=== PATIENT | male | born 1960 | race Caucasian/White ===

== ENCOUNTER 2018-03-04 00:26 | Emergency (ER) | payer OTHER ==
[2018-03-04 00:36] VITALS: BP 128/77; PULSE 78; TEMP 98.2; BMI 32.8
--- NOTE | 2018-03-04 00:52 | PDOC ---
History of Present Illness - General Chief Complaint: Diarrhea Stated Complaint: DIARRHEA Time Seen by Provider: 03/04/18 00:41 History Source: Patient Exam Limitations: No Limitations - History of Present Illness Travel History: No Initial Comments: 03/04/18 00:46 HISTORY OF PRESENT ILLNESS: This is a 57-year-old male with past medical history of hypertension and NIDDM, hyperlipidemia, CABG x3v in 2005 who presents to the emergency Department with 2 days of diarrhea. Patient states no change in dietary habits. Patient states stools and dark brown to black. Patient reports taking Pepto-Bismol to help with the diarrhea. Patient denies fevers, chills, chest pain, shortness of breath, abdominal pain, nausea, vomiting, dysuria, rectal bleeding. No recent travel or sick contacts. PAST MEDICAL HISTORY: see hpi SURGICAL HISTORY: see hpi ALLERGIES: No known drug allergies REVIEW OF SYSTEMS General/Constitutional: Denies fever or chills. Denies weakness, weight change. HEENT: Denies change in vision. Denies ear pain or discharge. Denies sore throat. Cardiovascular: Denies chest pain or shortness of breath. Respiratory: Denies cough, wheezing, or hemoptysis. Gastrointestinal: Denies nausea, vomiting or constipation. Denies rectal bleeding. + dark brown/black diarrhea Genitourinary: Denies dysuria, frequency, or change in urination. Musculoskeletal: Denies joint or muscle swelling or pain. Denies neck or back pain. Skin and breasts: Denies rash or easy bruising. Neurologic: Denies headache, vertigo, loss of consciousness, or loss of sensation. Psychiatric: Denies depression or anxiety. Endocrine: Denies increased thirst. Denies abnormal weight change. Hematologic/Lymphatic: Denies anemia, easy bleeding, or history of blood clots. Allergic/Immunologic: Denies hives or skin allergy. Denies latex allergy. PHYSICAL EXAM General Appearance: Well-appearing, appropriately dressed. No apparent distress , no intoxication. HEENT: EOMI, PERRLA, normal ENT inspection, normal voice, TMs normal, pharynx normal. No conjunctival pallor. No photophobia, scleral icterus. Neck: Supple. Trachea midline. No tenderness, rigidity, carotid bruit, stridor , lymphadenopathy, or thyromegaly. Respiratory/Chest: Lungs CTAB. No shortness of breath, chest tenderness, respiratory distress, accessory muscle use. No crackles, rales, rhonchi, stridor , wheezing, dullness Cardiovascular: RRR. S1, S2. No JVD, murmur, bradycardia, tachycardia. Vascular Pulses: Dorsalis-Pedis (R): 2+, Dorsalis-Pedis (L): 2+ Gastrointestinal/Abdominal: Normal bowel sounds. Abdomen soft, non-distended. No tenderness or rebound tenderness. No organomegaly, pulsatile mass, guarding, hernia, hepatomegaly, splenomegaly. Rectal: Prostate WNL. Palpable stool in vault. Dark brown stool present. Lymphatic: No adenopathy, tenderness. Musculoskeletal/Extremities: Normal inspection. FROM of all extremities, normal capillary refill. Pelvis Stable. No CVA tenderness. No tenderness to extremities, pedal edema, swelling, erythema or deformity. Integumentary: Appropriate color, dry, warm. No cyanosis, erythema, jaundice or rash Neurologic: floor surfacer II-XII intact. Fully oriented, alert. Appropriate mood/affect. Motor strength 5/5. No appreciable EOM palsy, facial droop or sensory deficit. Past History - Past Medical History Allergies/Adverse Reactions: Allergies Allergy/AdvReac Type Severity Reaction Status Date / Time No Known Allergies Allergy Verified 03/04/18 00:35 Cardiac Disorders: Yes (triple bypass) COPD: No Diabetes: Yes HTN: Yes Hypercholesterolemia: Yes - Surgical History Cardiac Surgery: Yes (triple bypass) - Suicide/Smoking/Psychosocial Hx Smoking History: Never smoked *Physical Exam - Vital Signs Last Vital Signs Temp Pulse Resp BP Pulse Ox 98.2 F 78 18 128/77 97 03/04/18 00:32 03/04/18 00:32 03/04/18 00:32 03/04/18 00:32 03/04/18 00:32 ED Treatment Course - LABORATORY CBC & Chemistry Diagram: 03/04/18 01:21 03/04/18 01:21 Medical Decision Making - Medical Decision Making 03/04/18 00:59 A/P: 57-year-old male with history of hypertension, NIDDM, hyperlipidemia, CABG 3v with 2 days of diarrhea Normoactive bowel sounds Abdomen soft nontender nondistended Palpable formed stool in the vault Dark brown stool on rectal exam DDx: Most likely acute diarrhea. Less likely infectious this patient has not had any abdominal pain, fevers, recent travel or antibiotic usage. Less likely obstruction or mass as normal painless abdominal exam. Given patient has had more than 6 loose bowel movements in the past 24 hours I will collect a basic set of laboratory testing to rule out electrolyte abnormalities and rectal bleeding. Normal saline 1 L IV bolus now. Likely discharge. 03/04/18 02:52 Laboratory testing notable for slightly elevated BUN-22. WBC 10,300. I will discharge the patient home as remainder of electrolytes are within normal limits and are negative occult blood. I will instruct the patient to take Imodium [id number] and follow printer technician's instructions for appropriate dosage. I discussed the physical exam findings, ancillary test results and final diagnoses with the patient. I answered all of the patient's questions. The patient was satisfied with the care received and felt comfortable with the discharge plan and treatment plan. The patient will call their primary care physician within 24 hours to arrange follow-up and will return to the Emergency Department with any new, persistent or worsening symptoms. *DC/Admit/Observation/Transfer Diagnosis at time of Disposition: Diarrhea Qualifiers: Diarrhea type: unspecified type Qualified Code(s): R19.7 - Diarrhea, unspecified - Discharge Dispostion Disposition: HOME Condition at time of disposition: Fair Decision to Admit order: No - Referrals Referrals: Allyn Doty MD [Primary Care Provider] - - Patient Instructions Printed Discharge Instructions: Diarrhea, Loperamide Additional Instructions: Keep well-hydrated. Take Imodium as directed by manufacturers instructions. Return to emergency department if he began to experience abdominal pain, rectal bleeding, dizziness, or any other concerns. - Post Discharge Activity
[2018-03-04] MEDS ORDERED: SODIUM CHLORIDE 1,000 ML IV STA (00:55)
[2018-03-04 02:23] LABS: BASO % 0.3 % (0-2.0); EOS % 1.9 % (0-4.5); HEMATOCRIT 44.3 % (35.4-49); HEMOGLOBIN 15.1 GM/dL (11.7-16.9); LYMPH % 28.6 % (8-40); MCH 33.7 pg (25.7-33.7); MCHC 34.1 g/dl (32.0-35.9); MEAN CELL VOLUME 98.7 fl (80-96); MONO % 9.7 % (3.8-10.2); NEUT % 59.5 % (42.8-82.8); PLATELET COUNT 181 K/MM3 (134-434); RBC 4.49 M/mm3 (4.00-5.60); RDW 13.9 % (11.9-15.9); WHITE BLOOD COUNT 10.3 K/mm3 (4.0-10.0)
[2018-03-04 02:43] LABS: ANION GAP 9 MMOL/L (8-16); BLOOD UREA NITROGEN 22 mg/dL (7-18); CALCIUM 8.5 mg/dL (8.5-10.1); CHLORIDE 107 mmol/L (98-107); CO2 26 mmol/L (21-32); GLUCOSE,RANDOM 125 mg/dL (74-106); POTASSIUM 4.2 mmol/L (3.5-5.1); SODIUM 142 mmol/L (136-145)
== END 2018-03-04 03:25 | disposition home or self-care (01) ==
LOC: JER 00:26
PROC: 3E0337Z Introduction of Electrolytic and Water Balance Substance into Peripheral Vein, Percutaneous Approach (ICD-10-PCS; principal; 2018-03-04)
DX: R19.7 Diarrhea, unspecified (principal); I25.10 Atherosclerotic heart disease of native coronary artery without angina pectoris; Z95.1 Presence of aortocoronary bypass graft; I10 Essential (primary) hypertension; E11.9 Type 2 diabetes mellitus without complications; Z79.84 Long term (current) use of oral hypoglycemic drugs; E78.5 Hyperlipidemia, unspecified
CPT/HCPCS: 36415; 80048; 82272; 85025; 96360; 99282-25; J7030

== ENCOUNTER 2019-08-27 11:08 | Emergency (ER) | payer OTHER ==
[2019-08-27 11:21] VITALS: BP 129/79; PULSE 86; TEMP 97.7; BMI 34.4
--- NOTE | 2019-08-27 11:43 | PDOC ---
History of Present Illness <Roxy Recinos - Last Filed: 08/27/19 12:56> <Dawna Walton - Last Filed: 08/31/19 01:41> - General Chief Complaint: Pain Stated Complaint: FOOT PAIN Time Seen by Provider: 08/27/19 11:42 Past History <Roxy Recinos - Last Filed: 08/27/19 12:56> - Past Medical History Cardiac Disorders: Yes (triple bypass) COPD: No Diabetes: Yes HTN: Yes Hypercholesterolemia: Yes - Surgical History Cardiac Surgery: Yes (triple bypass) - Psycho Social/Smoking Cessation Hx Smoking History: Former smoker Have you smoked in the past 12 months: No Information on smoking cessation initiated: No <Dawna Wlaton - Last Filed: 08/31/19 01:41> - Past Medical History Allergies/Adverse Reactions: Allergies Allergy/AdvReac Type Severity Reaction Status Date / Time No Known Allergies Allergy Verified 08/27/19 11:21 *Physical Exam - Vital Signs Last Vital Signs Temp Pulse Resp BP Pulse Ox 97.7 F 86 18 129/79 99 08/27/19 11:19 08/27/19 11:19 08/27/19 11:19 08/27/19 11:19 08/27/19 11:19 <Roxy Recinos - Last Filed: 08/27/19 12:56> - Vital Signs Last Vital Signs Temp Pulse Resp BP Pulse Ox 97.7 F 86 18 129/79 99 08/27/19 11:19 08/27/19 11:19 08/27/19 11:19 08/27/19 11:19 08/27/19 11:19 <Dawna Walton - Last Filed: 08/31/19 01:41> ED Treatment Course - Medications Given in the ED: ED Medications Discontinued Medications Generic Name Dose Route Start Last Admin Trade Name Freq PRN Reason Stop Dose Admin Ibuprofen 600 mg 08/27/19 12:49 08/27/19 12:54 Motrin - PO 08/27/19 12:50 600 mg ONCE ONE Administration <Roxy Recinos - Last Filed: 08/27/19 12:56> Medical Decision Making - Medical Decision Making 08/27/19 11:44 59yo M hx HTN, HLD, NIDDM, and CAD (s/p CABG x3v in 2006) presents from home with acute on chronic L foot pain since 08/15/19 (intermittent chronic since 1989), not improved by ibuprofen 500 yesterday, improved s/p 2 advil today at 0800, constant, worse when bears weight (uses crutches to help) and walking, worst on dorsal foot and medial ankle, associated with slight swelling. Pt states the pain started in 1989 and has seen his PCP multiple times for it and given crutches to use when the pain returns. Never seen ortho or podiatry. Denies trauma. PCP - Edel Woodruff ROS: Constitutional: Negative for chills, fever, fatigue, diaphoresis. HENT: Negative for sore throat, rhinorrhea, congestion. Eyes: Negative for visual disturbance. Respiratory: Negative for shortness of breath, cough, and wheezing. Cardiovascular: Negative for chest pain, palpitations, and leg swelling. Gastrointestinal: Negative for abdominal pain, blood in stool, constipation, diarrhea, nausea, and vomiting. Genitourinary: Negative for dysuria, flank pain, and hematuria. Musculoskeletal: Positive for L foot pain. Negative for myalgias, back pain, and neck pain. Skin: Negative for rash. Neurological: Negative for light-headedness, dizziness, vertigo, syncope, weakness, numbness and headaches. Psychiatric/Behavioral: Negative for behavioral problems and confusion. PE: Gen: Alert, NAD, comfortable-appearing. HEENT: PERRL, EOMI, MMM, NCAT. No conjunctival pallor. Sclera are non-icteric. CV: Regular rate and rhythm. No murmurs, rubs, or gallops. PULM: No resp distress. CTAB, no wheezes, rales, or rhonchi. ABD: soft, NT/ND, no rebound tenderness or guarding, no CVA tenderness. BACK: No TTP of c/t/l-spine. No step-offs or deformities. MSK: No bony deformities. 2+ pulses in all extremities. NEURO: AAOx3. PERRL. No gross CN deficits. Strength and sensation grossly intact throughout. EXTREMITIES: No cyanosis. No clubbing. No edema. No calf tenderness. L foot: TTP medial malleolus, point TTP center dorsal foot, and point TTP center sole of foot just below pad. No erythema, wounds, discharge, ecchymoses. Slight swelling on dorsal foot. Sensation intact throughout. Pulses intact. <2 sec cap refill. Soft compartments. Full ROM L ankle and L knee. No TTP of tibia or fibula above medial malleolus. Able to bear weight. PSYCH: Normal mood and thought pattern. SKIN: Warm and dry. Normal capillary refill. No jaundice. MDM: 59yo M hx HTN, HLD, NIDDM, and CAD (s/p CABG x3v in 2005) presents from home with acute on chronic L foot pain since 08/15/19 (intermittent chronic since 1989 ). Hemodynamically stable, afebrile. LLE neurovascularly intact, soft compartments, no e/o infection, no systemic findings, able to bear weight. Likely contusion vs soft tissue injury (ligament, tendon, muscle strain/sprain). Low concern for fx or dislocation due to lack of trauma, but r/o with XR. -XR L foot/ankle -Pain management: ibuprofen -Dispo: likely d/c home pending w/u and reassessment 08/27/19 12:47 XR reviewed: negative for acute pathology Shoe and wrap applied. Pt able to walk. Pain improved s/p ibuprofen Will discharge home with PCP and Podiatry f/u. Return precautions given. Pt understands all discharge instructions and all questions were answered. <Dawna Walton - Last Filed: 08/31/19 01:41> Discharge - Admission No <GriselRoxyyaa Orellana - Last Filed: 08/27/19 12:56> - Discharge Information Problems reviewed: Yes - Admission No <Dawna Walton - Last Filed: 08/31/19 01:41> - Discharge Information Clinical Impression/Diagnosis: Left foot pain Condition: Improved Disposition: HOME - Follow up/Referral Referrals: Edel Woodruff DO [Primary Care Provider] - Julius Batista MD [Staff Physician] - Chun Infante MD [Non Staff, Medical] - Jesse Huerta MD [Staff Physician] - - Patient Discharge Instructions Patient Printed Discharge Instructions: DI for Foot Pain Additional Instructions: You have been seen in the Emergency Department for your foot pain. Your X-Ray is normal. We have given you MARTHA wraps and a special shoe. It is important that you follow-up with a Search Engine Marketing Manager (foot doctor) for further evaluation and management of your pain. We have given you multiple referrals to Podiatrists - call one of the offices to make an appointment for this week. Return to the Emergency Department immediately if you experience any new or concerning symptoms including numbness, fever, or inability to walk. - Post Discharge Activity
--- NOTE | 2019-08-27 11:48 | PDOC ---
*Physical Exam - Vital Signs Last Vital Signs Temp Pulse Resp BP Pulse Ox 97.7 F 86 18 129/79 99 08/27/19 11:19 08/27/19 11:19 08/27/19 11:19 08/27/19 11:19 08/27/19 11:19 Medical Decision Making - Medical Decision Making 08/27/19 11:46 Patient seen as pre-attending with Dr. Walton (PGY-1) and Dr. Recinos (Attending) 59 y/o male here with 2 week h/o L foot pain. Pain is on the back of the foot + lateral malleolus, constant, worse with walking. No h/o trauma. Does not work. 2+ DP pulse, no TTP, no edema, no erythema. Will XR foot/ankle. NSAID for pain. Reassess. 08/27/19 14:02 XR with arthritic changes, no acute fracture Will give hard boot, NSAIDs for pain control. D/c home. Discharge - Discharge Information Problems reviewed: Yes Clinical Impression/Diagnosis: Left foot pain Condition: Improved Disposition: HOME - Follow up/Referral Referrals: Julius Batista MD [Staff Physician] - Chun Infante MD [Non Staff, Medical] - Edel Neri DO [Primary Care Provider] - Jesse Huerta MD [Staff Physician] - - Patient Discharge Instructions Patient Printed Discharge Instructions: DI for Foot Pain Additional Instructions: You have been seen in the Emergency Department for your foot pain. Your X-Ray is normal. We have given you MARTHA wraps and a special shoe. It is important that you follow-up with a W[employer]ath And Garland Maker (foot doctor) for further evaluation and management of your pain. We have given you multiple referrals to Podiatrists - call one of the offices to make an appointment for this week. Return to the Emergency Department immediately if you experience any new or concerning symptoms including numbness, fever, or inability to walk. - Post Discharge Activity
[2019-08-27] MEDS ORDERED: IBUPROFEN 600 MG TABLET (FP) PO ONE ×2 (12:49→12:55)
--- NOTE | 2019-08-27 12:49 | PDOC ---
Attending Attestation - Resident Resident Name: Dawna Walton - ED Attending Attestation I have performed the following: I have examined & evaluated the patient, The case was reviewed & discussed with the resident, I agree w/resident's findings & plan - HPI HPI: 08/27/19 12:57 59-year-old male with past medical history of hypertension and NIDDM, hyperlipidemia, CABG x3v in 2005 presenting with acute on chronic left dorsal foot pain, x 2 weeks beginning 08/15/19. denies trauma. no paresthesias or weakness. no recent falls. no f/c. has not iced the area has been using crutches to help him get around, which he has used previously for acute exacerbations of his left foot pain; has seen primary doctor previously for this intermittently since , has not seen podiatry in the past - Physicial Exam PE: 08/27/19 12:46 physical exam General: NAD, well appearing Vascular: 2+ DP pulses symmetric and equal. MSK: notable for soft compartments, Cap refill <2 sec. Proximal and distal strength 5/5, mixer attendant strength 5/5 - equal and symmetric. Plantar flexion and dorsiflexion 5/5. FROM. Sensation grossly intact to light touch. No calf tenderness. +left lateral malleolar TTP, no bony crepitus. +dorsal left foot with area of mild swelling and TTP, no skin discoloration or wounds, ecchymosis , erythema. no joint laxity. Neuro: alert, no focal neurologic deficits, ambulatory, able to bear weight and gait stable. Skin: color normal color, warm and well perfused. Cap refill <2 sec. - Medical Decision Making 08/27/19 12:46 Vital Signs Temp Pulse Resp BP Pulse Ox 97.7 F 86 18 129/79 99 08/27/19 11:19 08/27/19 11:19 08/27/19 11:19 08/27/19 11:19 08/27/19 11:19 DDx extremity pain: fx, contusion, msk strain, muscle tear, neuropathy. Considered but clinically doubt based on HPI and PE: compartment syndrome or ischemic limb based on history and physical exam. No signs of infection. No systemic findings. No erythema discharge or wounds noted., no fall or trauma to suggest lisfranc, ankle/foot fx or injuries. VS reviewed, wnl Xray normal joint space alignment, no acute fx or dislocation. Foot x-rays negative for acute pathology, arthritic changes noted, no blastic or lytic lesions noted. No fracture or subluxation. given motrin here gait is stable here, pt walked in with his crutches, able to bear weight. Discussed results with patient. MARTHA wrapped for comfort, hard sole shoe,. Rest ice and elevation. Pain control with OTC meds including motrin/tylenol as needed every 6 hours; no narcotics needed. Ortho followup provided. Crutches to assist with ambulation, WBAT. Please return to ED for increased pain, weakness, numbness/tingling, fever, or redness. 08/27/19 12:47 08/27/19 12:59 08/27/19 13:01
== END 2019-08-27 13:00 | disposition home or self-care (01) ==
LOC: JER 11:08
PROC: 2W3TXYZ Immobilization of Left Foot using Other Device (ICD-10-PCS; principal; 2019-08-27)
DX: M13.872 Other specified arthritis, left ankle and foot (principal); M79.672 Pain in left foot; I25.10 Atherosclerotic heart disease of native coronary artery without angina pectoris; I10 Essential (primary) hypertension; Z95.1 Presence of aortocoronary bypass graft; E11.9 Type 2 diabetes mellitus without complications; Z79.84 Long term (current) use of oral hypoglycemic drugs; E78.5 Hyperlipidemia, unspecified; E78.00 Pure hypercholesterolemia, unspecified; Z87.891 Personal history of nicotine dependence
CPT/HCPCS: 29540; 73610-TC-LT-FY; 73630-TC-LT; 99283-25

== ENCOUNTER 2022-06-23 04:06 | Day surgery (SDC) | payer OTHER ==
[2022-06-15 15:30] VITALS: BMI 32.8
[2022-06-23] MEDS ORDERED: FENTANYL CITRATE/PF 50 MCG/ML VIAL ONE (08:37)
[2022-06-23] MEDS ORDERED: MIDAZOLAM HCL 2 MG/2 ML SINGLE DOSE VIAL ONE (08:37)
[2022-06-23] MEDS ORDERED: ONDANSETRON 4 MG/2 ML VIAL ONE (08:47)
[2022-06-23 09:21] VITALS: RESP 20
[2022-06-23 11:07] VITALS: BP 110/70; PULSE 70; TEMP 98
== END 2022-06-23 10:45 | disposition home or self-care (01) ==
LOC: JASU-SURG 04:06
PROVIDERS: ATTEND Urology
PROC: 0TF3XZZ Fragmentation in Right Kidney Pelvis, External Approach (ICD-10-PCS; principal; 2022-06-23 08:30)
DX: N20.0 Calculus of kidney (principal)
CPT/HCPCS: 82962

== ENCOUNTER 2024-11-30 09:19 | Emergency (ER) | payer OTHER ==
[2024-11-30 09:27] VITALS: BP 127/81; PULSE 82; RESP 16; TEMP 97.7; BMI 32.8
[2024-11-30] MEDS ORDERED: KETOROLAC TROMETHAMINE 30 MG/1 ML VIAL ONE (10:19)
[2024-11-30] MEDS ORDERED: LIDOCAINE 4% PATCH TP ONE (10:19)
[2024-11-30] MEDS: KETOROLAC TROMETHAMINE 30 MG/1 ML VIAL IM ONE (10:23)
[2024-11-30] MEDS: LIDOCAINE 4% PATCH TP ONE (10:24)
== END 2024-11-30 10:52 | disposition home or self-care (01) ==
LOC: JER 09:19
PROC: 3E0233Z Introduction of Anti-inflammatory into Muscle, Percutaneous Approach (ICD-10-PCS; principal; 2024-11-30)
DX: S29.012A Strain of muscle and tendon of back wall of thorax, initial encounter (principal); M25.562 Pain in left knee; X50.0XXA Overexertion from strenuous movement or load, initial encounter
CPT/HCPCS: 71045-TC-FY; 72070-TC-FY; 73560-TC-LT-FY; 99284-25

== ENCOUNTER 2025-04-09 06:23 | Day surgery (SDC) | payer OTHER ==
[2025-04-04 12:22] VITALS: BMI 34.4
[2025-04-09] MEDS ORDERED: MIDAZOLAM HCL 2 MG/2 ML SINGLE DOSE VIAL ONE (15:46)
[2025-04-09] MEDS ORDERED: ONDANSETRON 4 MG/2 ML VIAL ONE (15:47)
[2025-04-09 16:22] VITALS: BP 128/64; PULSE 62; RESP 16; TEMP 96.9
== END 2025-04-09 17:15 | disposition home or self-care (01) ==
LOC: JASU-SURG 06:23
PROVIDERS: ATTEND Urology
PROC: 0TF3XZZ Fragmentation in Right Kidney Pelvis, External Approach (ICD-10-PCS; principal; 2025-04-09 16:30)
DX: N20.0 Calculus of kidney (principal)
CPT/HCPCS: 82962